=== PATIENT | male | born 1930 | race Caucasian/White ===

== ENCOUNTER 2018-10-22 09:21 | Inpatient (IN) | payer MEDICARE, BC ==
[~2018-10-22] VITALS: Ht 185.4 cm; Wt 68.3 kg
[~2018-10-22 09:21] MED LIST: CARDURA XL4 MG PO; CARDURA4 MG PO; MAXIMUM D310000 IU PO; MIRTAZAPINE7.5 MG PO; NORCO 325 MG-51 TAB PO; OMNICEF 300MG300 MG PO; PROSCAR 5MG5 MG PO
[2018-10-23] VITALS (12 sets, daily range): BP systolic 96–116; BP diastolic 43–63; PULSE 59–76; TEMP 97.3–98
[2018-10-23] MEDS ORDERED: CEPHALEXIN500 M1 PO (09:20)
[2018-10-23 09:43] LABS: MEAN CELL VOLUME 85 fl (80.0-100.0); MEAN CORPUSCULAR HGB CONC 32 g/dl (33.0-37.0); MEAN PLATELET VOLUME 8.7 fl (7.4-10.4); PLATELET COUNT 414 K/mm3 (130-400); RED BLOOD COUNT 3.69 M/mm3 (4.20-5.60); REDCELL DISTRIBUTION WIDTH-CV 14.1 % (11.5-14.5)
[2018-10-23 09:44] LABS: HEMATOCRIT 31.3 % (42.0-52.0); HEMOGLOBIN 9.9 g/dl (13.5-18.0); MEAN CORPUSCULAR HEMOGLOBIN 27 pg (27.0-31.0)
[2018-10-23 09:57] LABS: BILIRUBIN,TOTAL 0.4 mg/dL (0.0-1.0); CALCIUM 8.4 mg/dL (8.4-10.2); CREATININE, serum 0.8 (0.66-1.25); POTASSIUM 3.9 mmol/L (3.4-5.0)
--- NOTE | 2018-10-23 13:30 | NUR ---
PATIENT AROUSES TO NAME. UNABLE TO GET TEMPURATURE ORALLY OR AXILLARY. PATIENT FEELS WARM TO THE TOUCH. WILL CONTINUE TO MONITOR.
--- NOTE | 2018-10-23 16:00 | NUR ---
PATIENT IS DROWSY AND SEDATED FROM SURGERY BUT AROUSES EASILY TO NAME. PATIENT IS ABLE TO STATE HIS NAME, BIRTHDAY, THAT THE MONTH IS SEPTEMBER AND THAT HE'S IN THE HOSPITAL. PATIENT DOES NOT KNOW WHAT TOWN OR YEAR IT IS. POST-OP BLOOD PRESSURES LOW, BUT IMPROVING WITH IV FLUIDS. OTHERWISE POST-OP VSS. BOWEL SOUNDS ACTIVE ALL FOUR QUADRANTS. PATIENT TOLERATING CLEAR LIQUIDS WITHOUT ANY COMPLAINTS OF N/V. SHALLOW BREATHING NOTED. ALL RIGHT LUNG MCWILLIAMS DIMINISHED UPON AUSCULTATION. ALL LEFT LUNG MCWILLIAMS CLEAR. PATIENT DENIES SOB. PATIENT HAS A PRODUCTIVE COUGH WITH SCANT AMOUNTS OF THICK BLOODY SPUTUM. RIGHT UPPER CHEST INCISION TONE REGULATOR WITH SHARMA SET AND EDGES WELL APPROXIMATED. ABDOMINAL SKIN CANCER REMOVAL SITE DRESSED WITH METAPOR DRESSING AND IS CD&I. RIGHT LOWER CHEST TUBE DRESSED WITH GAUZE & HYPAFIX AND IS CD&I. CHEST TUBE TO PLEUROVAC AT 20 CM OF CONTINUOUS SUCTION WITH MODERATE AMOUNTS OF BLOODY DRAINAGE PRESENT IN PLEUROVAC CANISTER. IV FLUIDS INFUSING TO RIGH WRIST VIA PUMP. POSITIVE PEDAL PULSES EQUAL BILATERALLY. CAP REFILL < 3 SECONDS. SCD'S TO BLE. CALL LIGHT WITHIN REACH. PATIENT DENIES PAIN OR ANY OTHER NEEDS AT THIS TIME.
--- NOTE | 2018-10-23 19:51 | NUR ---
REPORT GIVEN TO CATHERINE UGALDE.
--- NOTE | 2018-10-23 21:00 | NUR ---
Patient in bed, is alert to self, unsure where or why he is here. Reorientation attempted. Patient has right CT to 20cm continuous suction with red drainage noted in tubing. Place extra foam tape over catheter for better securement. Wearing oxygen at 3L/nc. Denies pain or shortness of breath. Denies urge to void at this time. Takes HS meds without difficulty.
--- NOTE | 2018-10-23 22:25 | NUR ---
Patient has tried to get up unassisted. Reorientation attempted, patient agrees to plan to stay in bed and thanks staff for assistance. Bed alarm is on for safety.
--- NOTE | 2018-10-23 23:55 | NUR ---
Patients bed alarm sounding, upon arrival patient has chest tube in his hand, immediate pressure applied over right chest tube insertion site. Patient reports he was trying turn off the light and was caught on the tube. Jose DupreeDivorce Attorney was in the hallway when incident occurred, she took over holding pressure while occlusive drsg was obtained. Dressing of vaseline gauze, stack of 4x4 gauze and foam tape applied.
[2018-10-24] VITALS (8 sets, daily range): BP systolic 93–109; BP diastolic 44–58; PULSE 60–81; TEMP 97–98
--- NOTE | 2018-10-24 00:01 | NUR ---
Dr Mao notified of patients status. Order to keep occlusive dressing on for now. Patient will have chest xray in the AM. Chest tube drainage since 1700 is 90cc. Notified of patient no urinating since surgery, okays to straight cath if needed.
--- NOTE | 2018-10-24 00:10 | NUR ---
Patient denies shortness of breath, on oxygen at 3L/nc. SaO2=97%.
--- NOTE | 2018-10-24 02:30 | NUR ---
BLADDER SCAN SHOWS 384cc. Patient unable to void. Attempted straight cath without success, met resistance at the prostate.
--- NOTE | 2018-10-24 04:30 | NUR ---
Patient impulsive, bed alarm ringing, assisted patient to bathroom, voids 300cc of red tinged urine without difficulty. Patient confused, reaches to pull out IV site. Attempted to reorient patient, met with sarcastic remarks and attempts to further get up unassisted. Staying with patient at this time.
--- NOTE | 2018-10-24 04:50 | NUR ---
Transferred to room 346, closer to nurses station. Did leave IVF capped at this time as it was agitating patient. Bed alarm is on. Patient denies pain, no obvious shortness of breath. Livestock Commission Agent Jose notified of patients room change.
--- NOTE | 2018-10-24 06:00 | NUR ---
Has allowed IVF to infuse at this time. Has had lab and chest xray this AM. Still asking about "the meeting" and "going downstairs to surgery to get the cab". Bed alarm on.
[2018-10-24 06:19] LABS: MEAN CELL VOLUME 85 fl (80.0-100.0); MEAN CORPUSCULAR HGB CONC 31 g/dl (33.0-37.0); MEAN PLATELET VOLUME 9.1 fl (7.4-10.4); PLATELET COUNT 449 K/mm3 (130-400); RED BLOOD COUNT 3.34 M/mm3 (4.20-5.60); REDCELL DISTRIBUTION WIDTH-CV 14.2 % (11.5-14.5)
[2018-10-24 06:22] LABS: HEMATOCRIT 28.4 % (42.0-52.0); HEMOGLOBIN 8.9 g/dl (13.5-18.0); MEAN CORPUSCULAR HEMOGLOBIN 27 pg (27.0-31.0)
[2018-10-24 06:48] LABS: CREATININE, serum 0.88 (0.66-1.25); POTASSIUM 4.3 mmol/L (3.4-5.0)
--- NOTE | 2018-10-24 11:56 | NUR ---
First visit from the supervisor baking. No needs right now.
--- NOTE | 2018-10-24 15:35 | NUR ---
SW contacted the patient's sister, Merari, to discuss discharge plan. The patient has had some confusion today. Merari reports that the patient lives alone in [place]. She states that he is independent with ADLs and does not use any DME. She reports that this confusion is unlike him. She states that he still drives and an avid reader. She reports he is almost always in [place], utilizing the [place] [employer]. The patient's PCP is Dr. Ana Maria Dalton and records state he receives his medications at the [facility]. The patient does not have advanced directives in EMR, but his sister states that he does have them completed and that he is her DPOA-HC. She states that she has a copy at home. SW encouraged her to bring a copy to the hospital. The patient's plan was to return home upon discharge. SW to continue to follow to ensure a safe discharge.
--- NOTE | 2018-10-24 17:15 | NUR ---
patient is out of bed and getting dressed, is ready to leave, have tried to reoriented but unsuccessful, BUSINESS MACHINE MECHANIC in to sit with him
--- NOTE | 2018-10-24 19:30 | NUR ---
PATIENT IS SITTING UP WITH HIS BREAKFAST TRAY IN BED THIS AM. PATIENT IS ABLE TO STATE HIS NAME, BIRTHDAY, THAT THE MONTH IS SEPTEMBER AND THAT HE IS SOMEWHERE WITH SICK PEOPLE. PATIENT DOES NOT KNOW WHAT TOWN OR BUILDING HE'S IN OR WHAT YEAR IT IS. PATIENT IS AGITATED, FORGETFUL AND CONFUSED. PATIENT ATTEMPTED REMOVING IV AND CHEST TUBE DRESSING, CAUSING BLEEDING FROM PRIOR CHEST TUBE SITE DURING AM SHIFT. PRIOR CHEST TUBE SITE DRESSING REMOVED AND REPLACED WITH GAUZE, ABD PAD AND OCCLUSIVE FOAM TAPE. PATIENT'S RIGHT FOREARM INT WRAPPED WITH COBAN. ATTEMPTS TO DISTRACT AND RE-ORIENTEND PATIENT FREQUENTLY THROUGHOUT SHIFT WITHOUT PREVAIL. ANANTH AND RESTAURANT HOURLY MANAGER NOTIFIED AND AWARE. PATIENT GIVEN NUMEROUS DOSES OF ONE TIME IV HALDOL WITHOUT ANY AFFECT. PATIENT BLOOD PRESSURES SOFT, OTHERWISE VSS. BOWEL SOUNDS ACTIVE ALL FOUR QUADRANTS. PATIENT TOLERATING SMALL QUANTITIES OF DIET WITHOUT ANY COMPLAINTS OF N/V. ALL RIGHT LUNG MCWILLIAMS AND LEFT UPPER LUNG FIELD CLEAR UPON AUSCULTATION. LEFT LOWER LUNG LOBE DIMINISHED UPON AUSCULTATION. PATIENT DENIES SOB OR A PRODUCTIVE COUGH. RIGHT UPPER CHEST INCISION AND PREVIOUS CHEST TUBE SITE DRESSED WITH GAUZE, ABD PADS AND OCCLUSIVE FOAM TAPE DRESSING AND IS CD&I. ABDOMINAL SKIN CANCER REMOVAL SITE DRESSED WITH BANDAID AND IS CD&I. RIGHT WRIST IV TO INT. POSITIVE PEDAL PULSES EQUAL BILATERALLY. CAP REFILL < 3 SECONDS. 1+ PITTING-EDEMA TO FEET BILATERALLY. SCD'S AND IV FLUIDS CAUSING INCREASED AGITATION AND DISCONTINUED PER NURSING DISCRETION. PHYSICIANS NOTIFIED. PATIENT DENIES PAIN THROUGHOUT THE SHIFT. CALL LIGHT WITHIN REACH, HOWEVER PATIENT REFUSES TO UTILIZE THE CALL LIGHT. BED AND CHAIR ALARMS ON AT ALL TIMES. REPORT GIVEN TO CATHERINE UGALDE.
--- NOTE | 2018-10-24 19:56 | NUR ---
This nurse has been providing one on one with patient since approximately 1899. Patient was fully dressed, looking for watch. This nurse walked with patient around 3rd floor, and assisted back to room when ready. Patient brushed his teeth, and took a shower. Occlusive dressing to right anterior chest left in place. Patient showered self with supervision. After shower, patient put on pull up, as his underwear and shirt had blood on it from earlier. Declining to put on hospital gown at this time. Did allow this nurse to put on yellow non-skid socks. Occlusive dressing to right anterior chest is CDI. Site to right chest is well approximated and open to air. Patient changed dressing to skin biopsy site to upper abdomen/left chest area. Sutures intact. Edges well approximated Site is without redness, warmth, swelling, drainage, and pain. Patient put ointment to area, and covered with bandaid. Peripheral INT to right forearm is without redness, warmth, swelling, and pain. Site flushed. New coban placed around IV site after shower. Alert and oriented to self. Disoriented to date, believes it is November 1985. Does know the current president. Knows he is in the hospital in [place], but does not know why. Easily redirected to situation, but forgetful. Believes he is supposed to go home, but this nusre distracts with conversation, and is in bed at this time. Bed alarm is on, bed in lowest position. Call light within reach. Has denied having SOB and dyspnea. Respirations even and unlabored. LS CTA. HRR. BSAx4. 1+ edema BLE. Refusing to wear SCDs at this time.
[2018-10-25 00:19] VITALS: BP 90/52; PULSE 46; TEMP 98.2
--- NOTE | 2018-10-25 00:29 | NUR ---
Patient has been resting in bed with eyes closed. This nurse checked VS. Offered medications at that time, and patient did take HS medications at approximately 0015 without any difficulty. Denies having pain and discomfort. Asked patient if he thought he had to urinate yet, and replied, "any time now." Offered assistance to the bathroom and reminded patient that we needed a urine sample. Patient accepted assistance. Urine sample obtained at 0020. Assisted back to bed without any problems. Resting in bed with eyes closed at this time. Call light is within reach. Bed in lowest position, bed alarm on, yellow non-skid socks are on. Urine sample taken to lab.
[2018-10-25 00:43] LABS: COLLECTION METHOD CLEAN CATCH
[2018-10-25 01:57] LABS: MUCOUS Present /lpf; PH 5 (5-8); SQUAMOUS EPITHELIAL 0-2 /hpf; URINE APPEARANCE Clear; URINE BACTERIA None Seen /hpf; URINE BILIRUBIN Negative (NEGATIVE); URINE BLOOD 2+ (NEGATIVE); URINE CALCIUM OXALATE CRYSTAL Present /hpf; URINE COLOR Yellow; URINE GLUCOSE Negative (NEGATIVE); URINE KETONE Negative (NEGATIVE); URINE LEUKOCYTE ESTERASE Negative (NEGATIVE); URINE NITRATE Negative (NEGATIVE); URINE PROTEIN(semi-quant) Negative (NEGATIVE); URINE RBC >50 /hpf; URINE UROBILINOGEN Negative (NEGATIVE)
[2018-10-25 03:09] VITALS: BP 98/50; PULSE 67; TEMP 98
--- NOTE | 2018-10-25 03:14 | NUR ---
Patient trying to get up to go to the bathroom. Assisted to bathroom then back to bed. VS obtained and charted. Denied having pain and discomfort. No negative behaviors, such as trying to go home. Alert and oriented to person, place, time, and situation during cares, and no redirection was needed. Denied having any other needs or concerns. Bed in lowest position, bed alarm on, and yellow non-skid socks are on. Resting in bed with eyes closed at this time.
--- NOTE | 2018-10-25 05:25 | NUR ---
Patient got up around 0445 to go to the bathroom. Was disoriented to time, and started getting dressed, but easily redirected. Patient laughed and said he was going to lay back down. Assisted back to bed. Denied having any other needs or concerns at that time. Resting in bed with eyes closed at this time. Bed in lowest position, call light within reach, bed alarm on, yellow non-skid socks are on.
[2018-10-25 06:09] LABS: MEAN CELL VOLUME 86 fl (80.0-100.0); MEAN CORPUSCULAR HGB CONC 31 g/dl (33.0-37.0); PLATELET COUNT 404 K/mm3 (130-400); RED BLOOD COUNT 2.65 M/mm3 (4.20-5.60); REDCELL DISTRIBUTION WIDTH-CV 14.3 % (11.5-14.5)
[2018-10-25 06:19] LABS: ALBUMIN 2.3 gm/dL (3.5-5.0); CALCIUM 7.8 mg/dL (8.4-10.2); CREATININE, serum 0.91 (0.66-1.25); POTASSIUM 3.8 mmol/L (3.4-5.0); TOTAL PROTEIN 5.3 gm/dL (6.4-8.2)
[2018-10-25 06:32] LABS: BILIRUBIN UNCONJUGATED 0.1 mg/dL (0.0-1.1); BILIRUBIN,TOTAL 0.1 mg/dL (0.0-1.0)
[2018-10-25 06:35] LABS: HEMATOCRIT 22.7 % (42.0-52.0); HEMOGLOBIN 7.1 g/dl (13.5-18.0); MEAN CORPUSCULAR HEMOGLOBIN 27 pg (27.0-31.0)
[2018-10-25 08:56] VITALS: BP 103/52; PULSE 71; TEMP 97.5
--- NOTE | 2018-10-25 10:45 | NUR ---
Patient alert and oriented, answers questions appropriately. See assessment. Lungs CTA, no s/s respiratory distress noted. No other c/o at this time.
--- NOTE | 2018-10-25 11:02 | NUR ---
AUGIE attended clinical rounds. The patient's attending and the hospitalist are now recommending SNF. AUGIE then followed up with the patient. The patient is agreeable to SNF. AUGIE presented and explained the patient choice form. The patient preferred 1) [facility] 2) [facility]. Patient choice form signed by the patient and he was provided a copy. AUGIE then contacted the patient's sister, Merari, and confirmed plan. She states she is supportive of the plan and could provide transportation to [facility], if he is accepted there. AUGIE then contacted and faxed a referral to Mariam at [facility]. Kelly at [facility] reports that they do not have any beds available. AUGIE then met with the patient to inform. The patient reports that he would then be interested in [facility] for second preference. AUGIE contacted and faxed a referral to Mary at [facility]. SW awaiting their screenings.
[2018-10-25 12:01] VITALS: BP 91/43; PULSE 66; TEMP 97.8
[2018-10-25 16:13] VITALS: BP 96/42; PULSE 72; TEMP 97.8
--- NOTE | 2018-10-25 16:31 | NUR ---
Mary, at [facility], reports that they can come up to the hospital on Sunday, 10/28, and screen the patient. AUGIE attempted to contact Mariam at [facility] to check in on referral. AUGIE left a voicemail and will continue to follow.
[2018-10-25 20:00] VITALS: BP 107/53; PULSE 83; TEMP 97.9
--- NOTE | 2018-10-25 20:23 | NUR ---
Patient lying in bed when this nurse entered the room. States he is ready for his night medications so he can go to bed. Minimal confusion noted. Bed alarm on. Lung sounds coarse to right middle lobe. Clear to all other lobes. Dressing CDI to right chest tube site. Will continue to monitor.
[2018-10-26 00:55] VITALS: BP 113/49; PULSE 79; TEMP 98
[2018-10-26 03:55] VITALS: BP 109/52; PULSE 69; TEMP 98
--- NOTE | 2018-10-26 06:59 | NUR ---
Report given to CATHERINE Hill.
[2018-10-26 08:48] VITALS: BP 114/52; PULSE 78; TEMP 97.3
[2018-10-26 09:29] LABS: RETIC # 0.05 M/mm3 (0.02-0.16); RETIC % 1.5 % (0.5-3.52)
[2018-10-26 09:32] LABS: HEMATOCRIT 25.4 % (42.0-52.0); HEMOGLOBIN 7.9 g/dl (13.5-18.0)
[2018-10-26 09:38] LABS: IRON,SERUM 19 ug/dL (35-150)
[2018-10-26 09:47] LABS: TOTAL IRON BINDING CAPACITY 200 ug/dL (261-462)
[2018-10-26 10:14] LABS: FERRITIN 339 ng/mL (18-464)
--- NOTE | 2018-10-26 11:00 | NUR ---
Patient has been doing well this am. He stated he feels very tired today. He has been getting up in the room without any problems. Eating and dinking without N/V. He is not confused today. He is able to answer orientation questions appropriatly. No other changes at this time. Call light within reach.
[2018-10-26 12:01] VITALS: BP 111/59; PULSE 68; TEMP 97.7
[2018-10-26 16:27] VITALS: BP 115/55; PULSE 76; TEMP 98
--- NOTE | 2018-10-26 17:00 | NUR ---
Patient continues to do well. No confusion today. He is not trying to leave and is very cooperative today. No other changes at this time. Call light within reach.
[2018-10-26 19:46] VITALS: BP 103/54; PULSE 77; TEMP 98.5
--- NOTE | 2018-10-26 22:53 | NUR ---
PT IN BED. DENIES PAIN. NO DYSPNEA AT REST.
[2018-10-27 04:00] VITALS: BP 113/55; PULSE 68; TEMP 98.4
--- NOTE | 2018-10-27 05:27 | NUR ---
PT HAS BEEN ORIENTED x3, COMPLIANT AND COOPERATIVE. NO DYSPNEA AT REST.
[2018-10-27 05:45] LABS: BASO % 0.2 % (0.0-2.0); EOS # 0.1 (0.0-0.7); EOS % 2.1 % (0-4.0); GRAN # 3.8 (1.4-6.5); GRAN % 64.3 % (42.2-75.2); LYMPH # 1.5 (1.2-3.4); LYMPH % 25.7 % (20.0-51.0); MEAN CELL VOLUME 83 fl (80.0-100.0); MEAN CORPUSCULAR HGB CONC 32 g/dl (33.0-37.0); MEAN PLATELET VOLUME 8.6 fl (7.4-10.4); MONO # 0.4 (0.1-0.6); MONO % 7.2 % (1.7-9.3); PLATELET COUNT 380 K/mm3 (130-400); RED BLOOD COUNT 2.86 M/mm3 (4.20-5.60); REDCELL DISTRIBUTION WIDTH-CV 14.5 % (11.5-14.5)
[2018-10-27 05:47] LABS: HEMATOCRIT 23.8 % (42.0-52.0); HEMOGLOBIN 7.5 g/dl (13.5-18.0); MEAN CORPUSCULAR HEMOGLOBIN 26 pg (27.0-31.0)
[2018-10-27 05:55] LABS: CALCIUM 7.8 mg/dL (8.4-10.2); CREATININE, serum 0.74 (0.66-1.25); POTASSIUM 3.7 mmol/L (3.4-5.0)
[2018-10-27 07:44] VITALS: BP 121/58; PULSE 66; TEMP 98.1
--- NOTE | 2018-10-27 09:01 | NUR ---
Pt is awake and A/Ox4, sitting up in recliner finishing breakfast. He denies pain at this time. Resp. are even and unlabored on room air. Dressing to right upper chest is intact. Pt is up in room as tolerated. Denies any other needs.
[2018-10-27 11:36] VITALS: BP 112/52; PULSE 68; TEMP 98.5
[2018-10-27 15:41] VITALS: BP 123/65; PULSE 73; TEMP 98
[2018-10-27 15:43] VITALS: BP 113/57; PULSE 71; TEMP 98.1
--- NOTE | 2018-10-27 16:30 | NUR ---
Spoke with sister, Antoine Gage, and Dr. Mao. Everyone is in agreement that a short stay in a SNF would be best for pt at this time.
[2018-10-27 20:00] VITALS: BP 112/53; PULSE 74; TEMP 98.5
[2018-10-28 04:00] VITALS: BP 115/57; PULSE 70; TEMP 98.1
--- NOTE | 2018-10-28 06:24 | NUR ---
RESTING QUIETLY/SLEEPING. NO N/V. NO c/o PAIN.
[2018-10-28] MEDS ORDERED: AMOXICILLIN 8751 TAB PO (07:19)
[2018-10-28 07:52] VITALS: BP 111/64; PULSE 70; TEMP 97.9
[2018-10-28] MEDS ORDERED: FERROUS SU325 MG/TAB PO (08:33)
--- NOTE | 2018-10-28 10:00 | NUR ---
Patient alert and oriented, answers questions appropriately. See assessment. Patient independent in room. No c/o at this time.
--- NOTE | 2018-10-28 10:28 | NUR ---
AUGIE met with Mary from [facility] after they screened patient. They reported they can accept patient this afternoon. AUGIE met with patient about this. SW presented IM to patient. He signed and was provided a copy. AUGIE inquired if patient would like AUGIE to contact any family about discharge. Patient reports his family is already aware he will discharge to [facility] today (10/28) for detention, PT and OT. AUGIE will fax discharge orders once they're completed.
[2018-10-28 11:38] VITALS: BP 101/53; PULSE 70; TEMP 97.5
[2018-10-28 13:58] VITALS: BP 101/53; PULSE 70; TEMP 97.5
--- NOTE | 2018-10-28 14:43 | NUR ---
Patient transferred to [facility] with transportation staff at 1420. Report called to Fabiola.
== END 2018-10-28 14:20 | DRG 164 ==
LOC: INPTSU 10-23 08:50 → SURG 10-23 11:00
PROVIDERS: Physician Assistant; ADMIT Surgery
PROC: 0W9940Z Drainage of Right Pleural Cavity with Drainage Device, Percutaneous Endoscopic Approach (ICD-10-PCS; 2018-10-23)
PROC: 0BDN4ZX Extraction of Right Pleura, Percutaneous Endoscopic Approach, Diagnostic (ICD-10-PCS; principal; 2018-10-23 11:00)
DX: J98.4 Other disorders of lung (principal); E87.0 Hyperosmolality and hypernatremia; E46 Unspecified protein-calorie malnutrition; F05 Delirium due to known physiological condition; Z68.1 Body mass index [BMI] 19.9 or less, adult; J94.8 Other specified pleural conditions; E87.1 Hypo-osmolality and hyponatremia; R91.1 Solitary pulmonary nodule; I10 Essential (primary) hypertension; G31.84 Mild cognitive impairment of uncertain or unknown etiology; N40.0 Benign prostatic hyperplasia without lower urinary tract symptoms; D47.3 Essential (hemorrhagic) thrombocythemia; D64.9 Anemia, unspecified; E83.51 Hypocalcemia; Z85.858 Personal history of malignant neoplasm of other endocrine glands
CPT/HCPCS: 99222; 99231-AI; 99232-AI; 99233-AI; A7041; A7048; J0330; J0690; J1100; J1630; J1885; J2370; J2405; J2704; J2710; J3010; J7120